=== PATIENT | female | born 1980 | race Caucasian/White ===

== ENCOUNTER 2025-01-07 09:56 | Observation (INO) ==
--- NOTE | 2024-12-31 08:44 | Anesthesiology Consultation ---
Date of Service December 31, 2024 Assessment & Plan (1) Encounter for pre-operative examination: - difficult intubation: per patient after hysterectomy at outside hospital-no available records. - tirzepatide instructions: Patient informed by PAT RN to stop 7 days prior to surgery. - Per vending machine collector on 12/31/24: No known infectious disease contacts, current infectious disease symptoms in past 10 days or COVID positive test result in the past 30 days. Chart Review Chart Review: Acceptable Risk for Surgery and Patient NOT seen in Pre Admission Testing History Surgery Operation Date: 01/07/25 11:50 Proposed Procedures p [id number] Abdominoplasty - Ina Higgins MD Height/Weight Height: 5 ft 4 in Weight: 51.71 kg Allergies Allergy/AdvReac Type Severity Reaction Status Date / Time No Known Allergies Allergy Verified 12/31/24 08:02 Medications Home Medications Medication Instructions Recorded Confirmed Last Taken escitalopram oxalate 20 mg tablet 20 mg PO QAM 07/28/24 12/31/24 Unknown (Lexapro) tirzepatide 15 mg/0.5 mL 15 mg subcut WK 07/28/24 12/31/24 Unknown subcutaneous pen injector (Mounjaro) oxycodone-acetaminophen 5 mg-325 1 tab PO Q4H PRN pain #18 tabs 12/17/24 12/17/24 Unknown mg tablet (Endocet) Past Medical History Medical History (Updated 12/31/24 @ 08:44 by Amy Bailey PA-C) Anxiety and depression "mild" History of high cholesterol no current problems d/t weight loss Hx of primary hypertension no current problems d/t weight loss Hx of sleep apnea no current problems d/t weight loss Past Family History Family History Mother Hypertension Father Hypertension Grandmother (Maternal) Skin cancer (melanoma) Grandmother (Paternal) Hypertension Aunt Ovarian cancer Breast cancer Aunt Ovarian cancer Breast cancer Other No family history of adverse response to anesthesia Past Surgical History Surgical History delivery delivered 03/29/05, 06/05/2007 H/O gastric sleeve 08/2017? H/O: hysterectomy 2018 History of anesthesia reaction slow to wake up History of cholecystectomy History of difficult intubation for hysterectomy>was told difficult to intubate (was never told this with any other surgeries) History of dilatation and curettage (2003) History of tooth extraction Social History Smoking Status: Never smoker Do You Dip or Chew Tobacco: No Hx Alcohol Use: Yes Alcohol type: beer alcohol intake frequency: holidays/special occasions only Hx Substance Use: No substance use type: does not use Lab Results Anesthesia Preop Results Results Anesthesia Widget: WBC 3.42 K/ul (4.8-10.8) L 12/17/24 Hgb 13.8 g/dl (12.0-16.0) 12/17/24 Hct 41.8 % (37.0-47.0) 12/17/24 Plt 211 K/uL (130-400) 12/17/24 Na 138 mmol/L (136-145) 12/17/24 K 4.7 mmol/L (3.5-5.1) 12/17/24 Cl 102 mmol/L (98-107) 12/17/24 CO2 28 mmol/L (21-32) 12/17/24 BUN 12 mg/dl (6-23) 12/17/24 Creat 0.66 mg/dl (0.6-1.2) 12/17/24 Glucose Level 99 mg/dl (70-99(Fasting)) 12/17/24 PT 10.8 Seconds (9.0-12.0) 12/17/24 INR 1.0 (0.9-1.1) 12/17/24
--- NOTE | 2025-01-07 10:05 | History & Physical Bridge Note ---
Date of Service January 07, 2025 History & Physical Bridge Note I have examined the patient, reviewed the History & Physical and in the interval since the performance of the History & Physical I have noted the following changes of clinical significance: no changes noted
[2025-01-07] MEDS: LR 15ML/HR IV SCH (10:24)
[2025-01-07] MEDS ORDERED: ROCURONIUM BROMIDE 10 MG/ML 5 ML VIAL IV ONE ×2 (10:40→12:14)
[2025-01-07] MEDS ORDERED: PROPOFOL IV EMULSION 10 MG/ML 20 ML VIAL IV ONE ×2 (10:40→12:12)
[2025-01-07] MEDS ORDERED: ONDANSETRON INJ 2 MG/ML 2 ML VIAL ONE (10:40)
[2025-01-07] MEDS ORDERED: LIDOCAINE 2% 2 ML VIAL/AMP(20MG/ML) INFIL ONE (10:40)
[2025-01-07] MEDS ORDERED: MIDAZOLAM HCL 1 MG/ML 2ML VIAL ONE ×2 (10:41→10:55)
[2025-01-07] MEDS ORDERED: ONDANSETRON INJ 2 MG/ML 2 ML VIAL IV PRN ×2 (10:44→15:54)
[2025-01-07] MEDS ORDERED: ATROPINE SULFATE 0.1 MG/ML 10ML SYR IV PRN (10:44)
[2025-01-07] MEDS: TRANEXAMIC ACID 1,000 MG **IV Pre-op IV SCH (10:50)
[2025-01-07] MEDS ORDERED: ePHEDrine sulfate 50 MG/5 ML SYR ONE (11:43)
[2025-01-07] MEDS ORDERED: ACETAMINOPHEN 1000 MG/100 ML IV IV ONE (13:03)
[2025-01-07] MEDS ORDERED: SUGAMMADEX SODIUM 200 MG/2 ML VIAL IV ONE (13:23)
[2025-01-07] MEDS: BUPIVACAINE 0.25% PF 30 ML VIAL ONE (13:36)
[2025-01-07] MEDS: LIDOCAINE 1%/EPINEPHRINE 1:100,000 50 ML VIAL ONE (13:37)
--- NOTE | 2025-01-07 13:57 | Post Operative Brief Note ---
PG Immediate Post Op with CF Date of Surgery January 07, 2025 Pre & Post Diagnosis Operation Date: 01/07/25 11:50 Pre-Op Diagnosis: Abdominal Pannus, Encounter for Cosmetic Surgery Post-Op Diagnosis: Abdominal Pannus, Encounter for Cosmetic Surgery I identified the patient and participated in the time-out.: Yes Procedure Operation Date: 01/07/25 11:50 Actual Procedures s [id number](Not Applicable) - Ina Higgins MD p Abdominoplasty - Ina Higgins MD Surgeon Ina Higgins MD Patient Registration Manager Shauna Muñoz PA-C Estimated Blood Loss 30 Findings Consistent with Post-Op Diagnosis Specimens Specimen Description: A) Abdominal Pannus Drains Cash Catheter and David-Hayden Drain
--- NOTE | 2025-01-07 14:07 | Operative Report ---
PG Post Operative Report Pre & Post Diagnosis Operation Date: 01/07/25 11:50 Pre-Op Diagnosis: Abdominal Pannus, Encounter for Cosmetic Surgery Post-Op Diagnosis: Abdominal Pannus, Encounter for Cosmetic Surgery I identified the patient and participated in the time-out.: Yes Procedure Operation Date: 01/07/25 11:50 Actual Procedures s [id number](Not Applicable) - Ina Higgins MD p Abdominoplasty - Ina Higgins MD Surgeon Ina Higgins MD Radiologic Technologist Mammogram Shauna Muñoz PA-C Estimated Blood Loss 30 Findings Consistent with Post-Op Diagnosis Specimens abdominal skin Drains JPx2 Anesthesia Type General Complications none Indications s/p 200 lb weight loss, intertrigo Description of Procedure Risks, benefits, and alternatives of the procedure were explained to the patient who agreed and signed consent. She was identified and marked in the preoperative holding area. She was brought to the operating room where she was positioned supine and placed under general anesthesia without incident. Cash catheter was placed. Surgical site was prepped and draped sterilely. A time-out procedure was performed. I reassessed my markings which included a lower horizontal abdominal incision with the midportion 8 cm above the vulvar commissure. Incision was marked bilaterally to the ASIS. I began by injecting 1% lidocaine with epinephrine along the planned incision. The lower abdominal incision was made using a 15- blade scalpel to incise epidermis and superficial dermis followed by electrocautery to incise deep dermis, subcutaneous fat, Cornell's fascia down to the abdominal wall. Care was taken to bevel superiorly in order to avoid encountering the inguinal region. Electrocautery was used to elevate the anterior abdominal skin flap ligating the perforating vessels with 3-0 Vicryl ties and electrocautery. Dissection was carried up to the level of the umbilicus in the midline. At this point, a 15-blade scalpel was used to circumscribe the umbilicus. A vertical midline incision was then made from the incision to the umbilicus and divided in the midline using electrocautery. The umbilicus was then dissected out using electrocautery down to abdominal wall. The umbilical stalk appeared viable throughout the procedure. At this point, staff was notified that the next portion of the procedure was cosmetic in nature and the time is reflected in the nursing notes. Prior bello were confirmed using tailor tacking and the inverted V incision was made using a 15 blade scalpel and deepened through the dermis and subcutaneous tissue using electrocautery. Dissection of the skin and underlying subcutaneous tissue was undertaken at the level of the rectus fascia to the xiphoid process. Hemostasis was achieved with electrocautery. 2-0 Vicryl suture was used to reapproximate Cornell's fascia and deep dermis. At this point, the bed was flexed and the flaps were advanced and tacked to the incision above the mons pubis using 2-0 Vicryl suture. All skin edges did appear to be viable following this portion of the procedure. A total of 3 15 Romanian Bg drains were placed in the wound bed and brought out through a separate stab incision in the mons pubis. The drains were sutured into place using 3-0 nylon. The umbilicus was brought out through an inverted triangular incision in the abdominal wall. The remainder of the upper abdominal incision was closed using 2-0 PDO running superficial Quill suture and 3-0 Monocryl running subcuticular suture superior to the umbilicus, 3-0 PDS interrupted superficial dermal sutures inferior to the umbilicus followed by running subcuticular Monocryl. Nursing staff was again notified cosmetic portion was ending. Skin flaps were marked for excision. A 15-blade scalpel was used to make these incisions and the incision was deepened through dermis, subcutaneous fat, Cornell's fat using electrocautery. Subscarpal fat was resected directly.Horizontal wound closure was then begun lateral to medial using 2-0 Vicryl Cornell's fascia sutures, 2-0 Vicryl deep dermal sutures, 2-0 PDO running superficial Quill suture, 3-0 Monocryl running subcuticular suture. Umbilicus was brought out through the inverted triangle incision and was sutured into place using 4-0 chromic half buried horizontal mattress sutures. The umbilicus was dressed using Xeroform and the incision was dressed using Sylke followed by dry dressings and an abdominal binder. Shauna Muñoz PA-C was present and scrubbed throughout the procedure, assisting in retraction during dissection, hemostasis and simultaneous wound closure. I attest to the content of the Intraoperative Record and any orders documented therein. Any exceptions are noted below.
--- NOTE | 2025-01-07 14:58 | Anesthesiology Progress Note ---
Date of Service January 07, 2025 Anesthesia Post Procedure Vital Signs Vital Signs: Temp Pulse Pulse Resp BP BP Pulse Ox 01/07/25 14:50 99 H 19 129/76 100 01/07/25 14:40 101 H 16 127/72 100 01/07/25 14:30 97 H 13 111/73 100 01/07/25 14:20 93 H 17 111/64 100 01/07/25 14:13 36.0 C L 95 H 14 110/57 L 100 01/07/25 10:22 37.1 C 88 18 120/82 97 O2 Del Method O2 Flow Rate 01/07/25 14:50 Room Air 01/07/25 14:40 Room Air 01/07/25 14:30 Oxymask 9 01/07/25 14:20 Oxymask 9 01/07/25 14:13 Oxymask 9 01/07/25 10:22 Room Air Transfer of Care Handoff Completed per policy Notes Mental Status: alert / awake / arousable Patient Amnestic to Procedure: Yes Nausea / Vomiting: adequately controlled Pain: adequately controlled Airway Patency, RR, SpO2: stable & adequate BP & HR: stable & adequate Hydration State: stable & adequate Anesthetic Complications: no major complications apparent and Pt Satisfied with anesthetic care
[2025-01-07] MEDS: MEPERIDINE HCL 25 MG/ML CARP/VIAL ONE (14:59)
[2025-01-07] MEDS: MEPERIDINE HCL 25 MG/ML CARP/VIAL IV ONE (15:01)
[2025-01-07] MEDS ORDERED: diphenhydrAMINE 50 MG/ML VIAL IV PRN (15:54)
[2025-01-07] MEDS ORDERED: diphenhydrAMINE Capsule 25 MG CAP PO PRN (15:54)
[2025-01-07] MEDS ORDERED: ACETAMINOPHEN 325 MG TAB PO PRN (15:54)
[2025-01-07] MEDS ORDERED: PROMETHAZINE 12.5 MG/50.5 ML BAG IV PRN (15:54)
[2025-01-07] MEDS ORDERED: MoRPHine SULFATE 2 MG/ML CARP IV PRN ×2 (15:54)
[2025-01-07] MEDS: D5W AND 1/2NSS 1,000 ML IV SCH (16:22)
[2025-01-07 16:24] VITALS: RESP 16
[2025-01-08] MEDS: LORazepam 0.5 MG TAB PO PRN (02:22)
[2025-01-08 03:01] VITALS: TEMP 97.5
--- NOTE | 2025-01-08 07:42 | Surgery Progress Note ---
Date of Service January 08, 2025 Assessment & Plan (1) S/P panniculectomy: Plan: Adina is doing very well POD#1 s/p rose marie de raymond davis. She will be d/c home today. Post-op restrictions were reviewed, as well as packing the umbilicus daily and stripping her drains. Admission and Anticipated Discharge Date Admission Date: January 07, 2025 Subjective Adina is s/p rose marie de raymond panniculectomy. She is feeling well, is tolerating regular diet and ambulating in the halls. Cash was removed and she is able to void. Physical Exam Physical Exam: abd binder and surgical dressings removed - incision CDI, sylke in place, umbilicus viable. drains with appropriate serosang output Results & Data Vital Signs (Past 12 Hours) Vital Signs Temp Pulse Resp BP Pulse Ox O2 Del Method 01/08/25 03:00 36.4 C L 77 16 102/63 97 Room Air 01/07/25 22:51 36.7 C 80 16 93/55 L 95 Room Air PG Care Time/CCT Total # of Minutes Spent Total Time Spent with Patient: Total time spent is greater than 50% in coordination of care (as documented) at patient's floor/unit and/or counseling patient: Coding Level of Care Code 05303 Post Operative Follow-Up Diagnoses S/P panniculectomy Z98.890
[2025-01-08] MEDS: MULTIVITAMIN TAB PO SCH (08:27)
[2025-01-08] MEDS: ESCITALOPRAM OXALATE 20 MG TAB PO SCH (08:27)
[2025-01-08 08:31] VITALS: BP 100/64; PULSE 86; O2SAT 95
--- NOTE | 2025-01-09 13:15 | Discharge Summary ---
Date of Service January 09, 2025 Admission HPI Per Admitting Provider History of weight loss, symptomatic pannus. Admission Exam Per Admitting Provider Abdominal pannus with skin irritation. Principal Diagnosis Abdominal pannus Discharge Exam abd binder and surgical dressings removed - incision CDI, sylke in place, umbilicus viable. drains with appropriate serosang output Discharge Data Allergies Allergy/AdvReac Type Severity Reaction Status Date / Time No Known Allergies Allergy Verified 01/07/25 10:20 Procedures Performed Operation Date: 01/07/25 11:50 Actual Procedures s [id number](Not Applicable) - Ina Higgins MD p Abdominoplasty - Ina Higgins MD Hospital Course (1) S/P panniculectomy: Patient presented to [facility] with history of abdominal pannus. She was taken to the OR and underwent rose marie de lis panniculectomy. There were no intraoperative complications. She was taken to recovery and transferred to med/surg for observation. On POD#1, she was feeling well. She was tolerating a regular diet and ambulating. She was able to void after catheter was removed. On exam, her vitals were stable. Her incisions were CDI. Her drains had appropriate output. She was discharged home with instructions to follow-up in the office in one day. Total Time Total Time Spent Total Time Spent (In Minutes): 15 Total Time Includes: Examination of the Patient, Medication Reconciliation and Communication With Other Providers Discharge Plan Discharge Items Patient Disposition: Home - Self-Care Reason For Visit: Abdominal Pannus, Encounter for Cosmetic Surgery Discharge Diagnosis: s/p rose marie de lis panniculectomy Activity: As commented below Non-emergency contact: Surgeon Call non-emergency contact if: you have any medication questions, your pain is worsening, you have a fever and your wound has increased redness Follow-up/Referrals: Shauna Muñoz PA-C [Physician Food Sampler] - 01/09/25 1:00 pm Isabelle Leblanc CRNP [Primary Care Provider] - Diet: Regular Addtl Attending Provider Instructions: ACTIVITY RECOMMENDATIONS: __Normal activities _x_No bending, lifting or straining. Do stand stand or lay flat until it is easily comfortable __No driving __Driving allowed when you are off pain medications _x_Walking permitted __You should have help at home for ___ days __You may return to previous diet. DRESSINGS: __No dressings required __Keep dressings dry/in place until first office visit _x_Remove dressings _tomorrow__ and leave dressings off. Abd bindere must stay on (wearing a hsirt underneath will improve comfort). Pack umbilicus with Xeroform daily __Apply ice ___ days __Remove dressings and reapply garment __Apply antibiotic ointment (Bacitracin, Neosporin, etc) to wounds 3-4 times/day for 10 days BATHING: _x_Keep dressings dry _x_Sponge bathing permitted _x_Showering permitted tomorrow _x_No swimming, hot tubs or soaking in a tub MEDICATIONS: Resume previous medications unless instructed otherwise by your surgeon. _x_Do not use aspirin, Motrin, Advil or Ibuprofen as these may promote bleeding. Please use Tylenol. _x_Prescription(s) provided: pain medication was provided at your last office visit OTHER INSTRUCTIONS: x__Record drain output 2-3 times per day. Drain is ready to be removed when output is <10cc/24 hours per drain SPECIAL CARE INSTRUCTIONS: * It is normal to have a mild fever after surgery. If your temperature is higher than 101.5 degrees F, please call the office at [phone]. * Constipation is a typical side effect of pain medication. An oesj-emo-gasbdid stool softener will help relieve this. * Leaking around surgical drains may occur and should not cause concern. Sometimes these drains become clogged. If this happens, remove the bulb and milk the clot out of the tube, then replace the bulb. * Drainage from wounds after liposuction is normal and should be expected. Garments will become soiled. You should protect furniture and bedding. This drainage should mostly subside within 2-3 days. Leave garments in place unless instructed to remove them. * If you have unusual drainage from a wound or are concerned you have an infection or have any questions or concerns, please call the office at [phone]. FOLLOW UP VISIT: If not already scheduled, please call the office, , when you return home after surgery to schedule an appointment to be seen in __13_ days. Pending Studies at Discharge: Yes Stand-Alone Forms: [facility], Smoking Cessation Medications and DC Order Prescriptions: Continued escitalopram oxalate [Lexapro] 20 mg tablet 20 mg PO QAM Mounjaro 15 mg/0.5 mL pen injector 15 mg subcut WK Patient Comments: takes on Mondays oxycodone-acetaminophen [Endocet] 5-325 mg tablet 1 tab PO Q4H PRN (Reason: pain) Qty: 18 0RF Rx Instructions: initial therapy Dr. Higgins [id number] - Post- op acetaminophen 500 mg Tablet 500 mg PO Q6H PRN (Reason: Pain) Discontinued ibuprofen 200 mg Tablet 200 mg PO Q6H PRN (Reason: Pain) Discharge Orders: Discharge Order (Routine); Ordered 01/08/25 Ordered By: Shauna Sims/Other Patient Handouts: David Hayden Drain Tube Dc, Post Op Drain Emptying Steps Admission Data Admit Date/Time: 01/07/25 14:10 Attending Provider: Ina Higgins Admit Provider: Ina Higgins Primary Care Provider: Isabelle Leblanc Other Interventions: Discharge Summary Assessment (RN) Last Done: 01/08/25 08:51 Coding Level of Care Code 64923 OBS Care - Discharge Diagnoses S/P panniculectomy Z98.890
== END 2025-01-08 09:25 | disposition home or self-care (01) ==
LOC: 3E 09:56 → ASU 09:56